=== PATIENT | male | born 1950 | race African-American/Black ===

== ENCOUNTER 2019-09-24 01:45 | Emergency (ER) | payer OTHER ==
[2019-09-24 02:34] LABS: Bacteria/HPF 2+ HPF (None Seen); Bilirubin 1+ (Negative); Blood, Urine 1+ (Negative); Clarity Turbid (Clear); Glucose, Urine (Dipstick) Normal (Negative); Leukocyte 250 Leu/uL (Negative); Nitrite Negative (Negative); Protein, Urine (Dipstick) 30 mg/dL (Neg-Trace); RBC/HPF 0-3 HPF (0-3); Squamous Epithelial 0-3 HPF (0-3); Urobilinogen 12 mg/dL (Less than 2)
[2019-09-24 02:40] LABS: ALT (SGPT) 36 U/L (8-55); AST (SGOT) 155 U/L (5-34); Albumin 2.8 g/dL (3.4-4.8); Alkaline Phosphatase 205 U/L (40-110); Anion Gap 20 mmol/L (10-20); BUN (Urea Nitrogen) 38 mg/dL (8.4-25.7); Calc. Creatinine Clearance 0 mL/min (70-130); Calcium 8.7 mg/dL (7.8-10.44); Carbon Dioxide 28 mmol/L (23-31); Chloride 110 mmol/L (98-107); Estimated GFR-MDRD 69; Globulin 5.4 g/dL (2.4-3.5); Glucose 171 mg/dL (83-110); Potassium 3.8 mmol/L (3.5-5.1); Protein, Total 8.2 g/dL (5.8-8.1); Sodium 154 mmol/L (136-145)
[2019-09-24] MEDS ORDERED: Cefepime 2 GM VIAL ONE (02:45)
[2019-09-24 03:02] LABS: #Basophils 0.1 thou/uL (0.0-0.2); #Eosinphils 0.1 thou/uL (0.0-0.7); #Lymphocytes 1.2 thou/uL (1.20-3.40); #Monocytes 0.4 thou/uL (0.11-0.59); %Basophils 1.1 % (0.0-1.0); %Eosinophils 0.7 % (0.0-10.0); %Lymphocytes 11.2 % (21.0-51.0); %Monocytes 3.3 % (0.0-10.0); %Neutrophils 83.7 % (42.0-75.0); Hemoglobin 16.6 g/dL (14.0-18.0); Mean Corpuscular HGB CONC 30.8 g/dL (32.0-36.0); Mean Corpuscular Hemoglobin 28.9 pg (27.0-31.0); Mean Corpuscular Volume 93.8 fL (78.0-98.0); Mean Platelet Volume 10.3 fL (7.4-10.4); Platelet Count 131 thou/uL (130-400); RBC Distribution Width 15.5 % (11.5-14.5); Red Blood Cell (RBC) Count 5.75 mill/uL (4.70-6.10); White Blood Cell (WBC) Count 10.8 thou/uL (4.8-10.8)
[2019-09-24] MEDS ORDERED: Vancomycin 1 GM/200 ML BAG ONE (03:23)
[2019-09-24 03:43] LABS: CKMB 0.9 ng/mL (0-6.6)
[2019-09-24 05:37] LABS: Lactic Acid 2.6 mmol/L (0.5-2.2)
--- NOTE | 2019-09-24 08:27 | CT ---
PRELIMINARY REPORT/[facility]/EMERGENCY AFTER HOURS PROCEDURE: EXAM: CT Head Without Intravenous Contrast. CLINICAL HISTORY: Altered mental status TECHNIQUE: Axial computed tomography images of the head/brain without intravenous contrast. COMPARISON: None provided. FINDINGS: BRAIN: No acute intraparenchymal hemorrhage. No mass lesion. No CT evidence for acute territorial infarct. N o midline shift or extra-axial collection. Hypodense encephalomalacia in the left frontal lobe, left parietal lobe, and left occipital lobe. Mild generalized cerebral atrophy. Mild subcortical and pe riventricular white matter change likely related to chronic ischemic small vessel disease. Arteriosc lerosis. VENTRICLES: No hydrocephalus. ORBITS: The orbits are unremarkable. SINUSES AND MASTOIDS: The paranasal sinuses and mastoid air cells are clear. SOFT TISSUES: No significant facial or scalp soft tissue swelling evident. No radiopaque foreign body is seen. BONES: No acute skull fracture. IMPRESSION: No acute intracranial abnormality. 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 ELECTRONICALLY SIGNED BY: Conrad Escamilla MD Sep 24, 2019 2:33:33 AM CDT This report is intended for review by the ordering physician only, in accordance of law. If you recei ve this report in error, please call [facility] at [phone]. FINAL REPORT BRAIN CT WITHOUT IV CONTRAST EMERGENCY AFTER HOURS EXAM [id number] HOURS 09/24/2019 FINDINGS/IMPRESSION: Old infarct changes in the left frontal, parietal, and occipital lobes, with some brain volume loss, as well as some atrophy and chronic white matter ischemic change. No mass or bleed. This report is in agreement with preliminary report by [facility]. POS: RRE
--- NOTE | 2019-09-24 08:40 | RAD ---
PORTABLE CHEST: Date: 09/24/2019 HISTORY: Decreased O2 saturation, shortness of breath. No fever. FINDINGS: Heart size is within normal limits. There are atherosclerotic changes of the aorta. Bilateral patchy slightly more peripherally oriented infiltrative appearing lung changes are seen. IMPRESSION: Bilateral infiltrative appearing lung changes. The possibility of COVID would be a consideration. POS: MARÍA
[2019-09-24 18:30] LABS: SARS-CoV-2 MS2 Positive; SARS-CoV-2 N Gene Positive; SARS-CoV-2 S Gene Positive; SARS-CoV-2 orf1ab Positive
--- NOTE | 2019-09-28 11:54 | EKG ---
Test Reason : Blood Pressure : / mmHG Vent. Rate : 113 BPM Atrial Rate : 113 BPM P-R Int : 128 ms QRS Dur : 090 ms QT Int : 378 ms P-R-T Axes : 004 -15 -02 degrees QTc Int : 518 ms Sinus tachycardia Moderate voltage criteria for LVH, may be normal variant Nonspecific ST abnormality Abnormal ECG Confirmed by TIMMY CUNNINGHAM ([id number]), purchasing expeditor ESTEFANY HERRERA ([id number]) on 09/28/2019 11:54:22 AM Referred By: Confirmed By:TIMMY CUNNINGHAM
== END 2019-09-24 05:32 | disposition short-term general hospital (02) ==
LOC: EEVIPCON 01:45 → ERS 01:45
DX: A41.89 Other specified sepsis (principal); U07.1 COVID-19; R65.20 Severe sepsis without septic shock; R09.02 Hypoxemia; R41.82 Altered mental status, unspecified; I10 Essential (primary) hypertension; E11.9 Type 2 diabetes mellitus without complications; M19.90 Unspecified osteoarthritis, unspecified site; J45.909 Unspecified asthma, uncomplicated; E78.5 Hyperlipidemia, unspecified; K21.9 Gastro-esophageal reflux disease without esophagitis; K74.60 Unspecified cirrhosis of liver; G47.30 Sleep apnea, unspecified; Z86.73 Personal history of transient ischemic attack (TIA), and cerebral infarction without residual deficits; Z79.82 Long term (current) use of aspirin; Z79.899 Other long term (current) drug therapy; Z79.84 Long term (current) use of oral hypoglycemic drugs
CPT/HCPCS: 36415; 51701; 70450; 71045; 80053; 81003; 81015; 82140; 82553; 83605; 83880; 84484; 85025; 87040; 87635; 93005; 94760; 96365; 96366; J0692; J3370; U0003